=== PATIENT | male | born 1955 | race Caucasian/White ===

== ENCOUNTER → 2016-07-04 | Outpatient (CLI) | payer BC, MEDICARE | LOC: SP 12:28 | PROVIDERS: ATTEND Orthopaedic Surgery Sports Medicine | DX: M79.662 Pain in left lower leg (principal) | CPT/HCPCS: 93971 ==

== ENCOUNTER 2018-08-13 19:16 | Observation (INO) | payer MEDICAID, MEDICARE ==
[2018-08-13] MEDS ORDERED: OXYCODONE-ACETAMINOPHEN 5-325 MG TABLET PO ONE (19:54)
[2018-08-13] MEDS ORDERED: ONDANSETRON 4 MG TAB.RAPDIS PO ONE (19:54)
--- NOTE | 2018-08-13 19:56 | ER Document Report ---
ED Medical Screen (RME) - General Chief Complaint: Fall Injury Stated Complaint: RIGHT SHOULDER PAIN Time Seen by Provider: 08/13/18 19:53 Notes: 62-year-old male patient Parkinson's disease fell getting out of a car this evening. He landed on his right shoulder. Is having pain with deformity and unable to move the arm. Exam shows good sensation, good radial pulse, anterior defect suggesting dislocation of the shoulder. I have greeted and performed a rapid initial assessment of this patient. A comprehensive ED assessment and evaluation of the patient, analysis of test results and completion of the medical decision making process will be conducted by additional ED providers. TRAVEL OUTSIDE OF THE [place] IN LAST 30 DAYS: No - Related Data Allergies/Adverse Reactions: No Known Allergies Allergy (Unverified 05/05/15 09:40) Past Medical History - Social History Frequency of alcohol use: None Drug Abuse: None Renal/ Medical History: Denies: Hx Peritoneal Dialysis Psychiatric Medical History: Reports: Hx Depression - Immunizations Hx Diphtheria, Pertussis, Tetanus Vaccination: Yes Physical Exam - Vital signs Vitals: Temp Pulse Resp BP Pulse Ox 98.2 F 58 L 24 H 179/65 H 96 08/13/18 19:28 08/13/18 19:28 08/13/18 19:28 08/13/18 19:28 08/13/18 19:28 Course - Vital Signs Vital signs: Temp Pulse Resp BP Pulse Ox 98.2 F 58 L 24 H 179/65 H 96 08/13/18 19:28 08/13/18 19:28 08/13/18 19:28 08/13/18 19:28 08/13/18 19:28
[2018-08-13] MEDS ORDERED: FENTANYL CITRATE INJ/PF 100 MCG/2 ML AMPUL IV ONE (20:31)
--- NOTE | 2018-08-13 20:40 | RADIOLOGY REPORT (SQ) ---
EXAM DESCRIPTION: XR SHOULDER 2 OR MORE VIEWS COMPLETED DATE/TME: 08/13/2018 19:55 CLINICAL HISTORY: 62 years Male Probable dislocation after a fall COMPARISON: None. TECHNIQUE: RIGHT shoulder two view FINDINGS: There is anterior dislocation of the shoulder. No definite acute fracture. Postsurgical changes in the humeral head. Stimulator over the right chest. Acromioclavicular joint appears maintained. IMPRESSION: Anterior shoulder dislocation
[2018-08-13] MEDS ORDERED: ONDANSETRON HCL INJ/PF 4 MG/2 ML SDV IV ONE (20:55)
[2018-08-13] MEDS ORDERED: PROPOFOL INJ 200 MG/20 ML VIAL IV ONE ×2 (20:55→22:06)
[2018-08-13 21:33] LABS: ABSOLUTE EOSINOPHILS # (AUTO) 0.1 10^3/uL (0.0-0.6); ABSOLUTE MONOCYTES (AUTO) 0.9 10^3/uL (0.1-1.4); ABSOLUTE NEUT (AUTO) 8.5 10^3/uL (1.7-8.2); BASOPHILS % (AUTO) 0.5 % (0-2); HEMATOCRIT 44.3 % (37.9-51.0); HEMOGLOBIN 15.4 g/dL (13.5-17.0); LYMPHOCYTES % (AUTO) 9.8 % (13-45); MEAN CORPUSCULAR HEMOGLOBIN 31.6 pg (27.0-33.4); MEAN CORPUSCULAR HGB CONC 34.7 g/dL (32.0-36.0); MEAN CORPUSCULAR VOLUME 91 fl (80-97); MONOCYTES % (AUTO) 8.2 % (3-13); PLATELET COUNT 178 10^3/uL (150-450); RED BLOOD COUNT 4.87 10^6/uL (4.35-5.55); RED CELL DISTRIBUTION WIDTH 14.6 % (11.5-14.0); SEGMENTED NEUTROPHILS % (AUTO) 80.5 % (42-78); TOTAL CELLS COUNTED % (AUTO) 100 %; WHITE BLOOD COUNT 10.6 10^3/uL (4.0-10.5)
[2018-08-13 21:39] LABS: INTERNATIONAL RATION (INR) 1.49; PROTHROMBIN TIME 18.8 SEC (11.4-15.4)
[2018-08-13] MEDS ORDERED: MORPHINE SULFATE 10 MG/ML INJ IV ONE (21:39)
--- NOTE | 2018-08-13 21:44 | ER Document Report ---
Entered by MIMA JEFFERSON SCRIBE 08/13/[id number] Acting as scribe for:LANA VILLALBA DO ED Fall - General Chief Complaint: Fall Injury Stated Complaint: RIGHT SHOULDER PAIN Time Seen by Provider: 08/13/18 19:53 Mode of Arrival: Ambulatory Information source: Patient Notes: Patient is a 62-year-old male with a brain stimulator (Parkinson's disease), CABG, presenting to the emergency department complaining of right shoulder pain secondary to mechanical trip and fall prior to arrival to the emergency department. Patient states he slipped and fell backwards into his truck hitting his right shoulder. He also complains of right shoulder pain. He denies any head trauma, neck pain, abdominal pain or loss of consciousness. Patient is currently on Coumadin. TRAVEL OUTSIDE OF THE [place] IN LAST 30 DAYS: No - Related data Allergies/Adverse Reactions: No Known Allergies Allergy (Unverified 05/05/15 09:40) Past Medical History - General Information source: Patient - Social History Smoking Status: Never Smoker Frequency of alcohol use: None Drug Abuse: None Family History: Reviewed & Not Pertinent Patient has suicidal ideation: No Patient has homicidal ideation: No Psychiatric Medical History: Reports: Hx Depression - Immunizations Hx Diphtheria, Pertussis, Tetanus Vaccination: Yes Review of Systems - Review of Systems Constitutional: No symptoms reported EENT: No symptoms reported Cardiovascular: No symptoms reported Respiratory: No symptoms reported Gastrointestinal: No symptoms reported Genitourinary: No symptoms reported Male Genitourinary: No symptoms reported Musculoskeletal: See HPI Skin: No symptoms reported Hematologic/Lymphatic: No symptoms reported Neurological/Psychological: No symptoms reported -: Yes All other systems reviewed and negative Physical Exam - Vital signs Vitals: Temp Pulse Resp BP Pulse Ox 98.2 F 58 L 24 H 179/65 H 96 08/13/18 19:28 08/13/18 19:28 08/13/18 19:28 08/13/18 19:28 08/13/18 19:28 - Notes Notes: GENERAL: Alert, appears uncomfortable. HEAD: Normocephalic, atraumatic. EYES: Pupils equal, round, and reactive to light. Extraocular movements intact. ENT: Oral mucosa moist, tongue midline. NECK: Full range of motion. Supple. Trachea midline. LUNGS: Clear to auscultation bilaterally, no wheezes, rales, or rhonchi. No respiratory distress. HEART: Regular rate and rhythm. No murmurs, gallops, or rubs. ABDOMEN: Soft, non-tender. Non-distended. Bowel sounds present in all 4 quadrants. No guarding, rigidity, or rebound. EXTREMITIES: Restricted movement of the RUE due to pain, obvious deformity of the right shoulder, pulses intact. FROM of LUE, RLE, LLE. Sensations intact. NEUROLOGICAL: Alert and oriented x3. Normal speech. PSYCH: Normal affect, normal mood. SKIN: Warm, dry, normal turgor. No rashes or lesions noted. Course - Re-evaluation Re-evalutation: 08/13/18 21:39 Patient is a 62-year-old male who comes in after a mechanical fall with a right shoulder dislocation. Patient has a history of CABG, is on Coumadin, and has a history of Parkinson's with a brain stimulator. Anesthesia was consulted, Dr. Holman who came to see the patient and agrees that the OR would be the safest place for this particular patient. Dr. Valencia has been consulted who will take the patient to the OR for probable closed reduction. Patient and family are agreeable to this plan. Pain is been controlled with fentanyl and morphine in the emergency department. Last oral intake was around 530. - Vital Signs Vital signs: Temp Pulse Resp BP Pulse Ox 98.3 F 69 23 H 179/65 H 96 08/13/18 21:33 08/13/18 21:33 08/13/18 21:33 08/13/18 19:28 08/13/18 21:33 - Laboratory Result Diagrams: 08/13/18 21:23 08/13/18 21:23 Laboratory results interpreted by me: 08/13/18 21:23 WBC 10.6 H RDW 14.6 H Seg Neutrophils % 80.5 H Lymphocytes % 9.8 L Absolute Neutrophils 8.5 H - Diagnostic Test Radiology reviewed: Image reviewed, Reports reviewed - EKG Interpretation by Id EKG shows normal: Sinus rhythm Rate: Normal Rhythm: PVC's Discharge - Discharge Clinical Impression: Dislocation, shoulder closed Qualifiers: Encounter type: initial encounter Laterality: right Qualified Code(s): S43.004A - Unspecified dislocation of right shoulder joint, initial encounter Condition: Stable Disposition: OTHER Admitting Provider: Erik Unit Admitted: OR [facility] Attestation: 08/13/18 21:41 I personally performed the services described in the documentation, reviewed and edited the documentation which was dictated to the scribe in my presence, and it accurately records my words and actions. I personally performed the services described in the documentation, reviewed and edited the documentation which was dictated to the scribe in my presence, and it accurately records my words and actions.
[2018-08-13 21:54] LABS: ALANINE AMINOTRANSFERASE 21 U/L (21-72); ALBUMIN 4.1 g/dL (3.5-5.0); ALKALINE PHOSPHATASE 81 U/L (38-126); ANION GAP 7 (5-19); ASPARTATE AMINO TRANSFERASE 25 U/L (17-59); BILIRUBIN,DIRECT 0.3 mg/dL (0.0-0.4); BILIRUBIN,TOTAL 0.6 mg/dL (0.2-1.3); BLOOD UREA NITROGEN 23 mg/dL (7-20); CALCIUM 9.3 mg/dL (8.4-10.2); CARBON DIOXIDE 29 mmol/L (22-30); CHLORIDE 103 mmol/L (98-107); GLUCOSE 119 mg/dL (75-110); POTASSIUM 4.3 mmol/L (3.6-5.0); SODIUM 139.4 mmol/L (137-145)
[2018-08-13] MEDS ORDERED: KETAMINE HCL INJ 500 MG/10 ML VIAL ONE (22:06)
[2018-08-13] MEDS ORDERED: MIDAZOLAM 2 MG/2 ML INJ ONE (22:06)
--- NOTE | 2018-08-13 22:16 | PDOC H&P ---
History of Present Illness Admission Date/PCP: 08/13/18 21:58 History of Present Illness: MARCEL ESCUDERO is a 62 year old male 62-year-old white male presents with right shoulder pain. Evaluation emergency room is consistent with an anterior right shoulder dislocation. Orthopedics is consulted for reduction of the dislocated shoulder because of the patient's significant comorbidities and the impediment that this would mount for conscious sedation in the ER. Past Medical History Cardiac Medical History: Reports: Coronary Artery Disease Neurological Medical History: Reports: Other - Parkinson's, brain stimulator Malignancy Medical History: Reports: None Psychiatric Medical History: Reports: Depression Past Surgical History Past Surgical History: Reports: Orthopedic Surgery - History of prior right shoulder dislocation in the while playing foot Social History Information Source: Patient, Relative, [facility] Records Lives with: Spouse/Significant other Smoking Status: Never Smoker Family History Family History: Reviewed & Not Pertinent Parental Family History Reviewed: No Children Family History Reviewed: No Sibling(s) Family History Reviewed.: No Medication/Allergy Home Medications: Oxycodone HCl/Acetaminophen [Percocet 5-325 mg Tablet] 1 - 2 tab PO Q4H PRN #60 tablet 05/05/15 Guaifenesin [Mucinex] 600 mg PO BID #60 tablet.sa 05/06/15 Allergies/Adverse Reactions: No Known Allergies Allergy (Unverified 05/05/15 09:40) Review of Systems All systems: as per PMH Physical Exam Vital Signs: Temp Pulse Resp BP Pulse Ox 36.8 C 69 23 H 179/65 H 96 08/13/18 21:33 08/13/18 21:33 08/13/18 22:00 08/13/18 19:28 08/13/18 22:00 Intake & Output 08/12/18 08/13/18 08/14/18 06:59 06:59 06:59 Weight 131.8 kg Physical Exam: The patient is a burly middle-aged white male lying on an emergency room gurney. He is alert, oriented, and appropriate. General appearance: PRESENT: mild distress, obese, well-nourished Head exam: PRESENT: normocephalic Respiratory exam: PRESENT: tachypnea, unlabored Cardiovascular exam: PRESENT: RRR Pulses: PRESENT: normal radial pulses Vascular exam: PRESENT: normal capillary refill GI/Abdominal exam: PRESENT: soft Rectal exam: PRESENT: deferred Extremities exam: PRESENT: other - Right shoulder with clear topical anatomy deformity. Distal neurovascular examination is intact Neurological exam: PRESENT: alert, awake, oriented to person, oriented to place, oriented to time, oriented to situation Skin exam: PRESENT: dry, intact, warm. ABSENT: cyanosis, rash Results Laboratory Results: 08/13/18 21:23 08/13/18 21:23 08/13/18 08/13/18 21:23 21:23 WBC 10.6 H RBC 4.87 Hgb 15.4 Hct 44.3 MCV 91 MCH 31.6 MCHC 34.7 RDW 14.6 H Plt Count 178 Seg Neutrophils % 80.5 H Lymphocytes % 9.8 L Monocytes % 8.2 Eosinophils % 1.0 Basophils % 0.5 Absolute Neutrophils 8.5 H Absolute Lymphocytes 1.0 Absolute Monocytes 0.9 Absolute Eosinophils 0.1 Absolute Basophils 0.0 Sodium 139.4 Potassium 4.3 Chloride 103 Carbon Dioxide 29 Anion Gap 7 BUN 23 H Creatinine 1.26 H Est GFR ( Amer) > 60 Est GFR (Non-Af Amer) 58 L Glucose 119 H Calcium 9.3 Total Bilirubin 0.6 AST 25 ALT 21 Alkaline Phosphatase 81 Total Protein 7.0 Albumin 4.1 Impressions: Shoulder X-Ray 08/13/18 19:55 IMPRESSION: Anterior shoulder dislocation Status: Imported from PACS Assessment & Plan - Diagnosis (1) Dislocation, shoulder closed Qualifiers: Encounter type: initial encounter Laterality: right Qualified Code(s): S43.004A - Unspecified dislocation of right shoulder joint, initial encounter Is this a current diagnosis for this admission?: Yes Plan: Plan for reduction discussed with Dr. Han skin Dr. Holman. Formula plan to transfer the patient to the operating room for short intubation to allow reduction of the shoulder. - Time Time Spent: 50 to 70 Minutes Anticipated discharge: Home Within: within 24 hours
--- NOTE | 2018-08-13 22:31 | Operative Report ---
Operative Report DATE OF SURGERY: 08/13/18 PREOPERATIVE DIAGNOSIS: Right glenohumeral dislocation, anterior OPERATION: Closed reduction right glenohumeral dislocation SURGEON: JUVE LAL ANESTHESIA: GA ESTIMATED BLOOD LOSS: 0 PROCEDURE: With the patient under sedation/general anesthesia on the operating table the right upper extremity is manipulated under fluoroscopic guidance to affect an a natomic reduction of the glenohumeral joint. The reduction is appreciated clinically and confirmed fluoroscopically. Shoulder immobilizer was placed. The patient's return to the PACU in satisfactory condition.
--- NOTE | 2018-08-13 22:35 | Discharge Summary ---
Discharge Summary (SDC) - Discharge Final Diagnosis: Right shoulder dislocation Date of Surgery: 08/13/18 Discharge Date: 08/13/18 Condition: Good Treatment or Instructions: Use shoulder immobilizer at all times Prescriptions: Oxycodone HCl/Acetaminophen [Percocet 5-325 mg Tablet] 1 - 2 tab PO Q4H PRN #60 tablet PRN Reason: Discharge Diet: As Tolerated, Regular Respiratory Treatments at Home: Deep Breathing/Coughing Discharge Activity: Balance Activity w/Rest Home Care Assistance: None Needed Report the Following to Your Physician Immediately: Shortness of Breath, Fever over 101 Degrees
[2018-08-13] MEDS ORDERED: MEPERIDINE HCL/PF INJ 25 MG/1 ML DISP.SYRIN IV PRN (22:44)
[2018-08-13] MEDS ORDERED: OXYCODONE-ACETAMINOPHEN 5-325 MG TABLET PO PRN ×2 (22:44)
[2018-08-13] MEDS ORDERED: PROMETHAZINE HCL INJ 25 MG/1 ML VIAL IV PRN (22:44)
[2018-08-13] MEDS ORDERED: ONDANSETRON HCL INJ/PF 4 MG/2 ML SDV IV PRN (22:44)
[2018-08-13] MEDS ORDERED: FENTANYL CITRATE INJ/PF 100 MCG/2 ML AMPUL IV PRN ×3 (22:44)
[2018-08-13] MEDS ORDERED: DIPHENHYDRAMINE HCL 50 MG/ML VIAL IV PRN (22:44)
[2018-08-13] MEDS ORDERED: FENTANYL CITRATE INJ/PF 100 MCG/2 ML AMPUL ONE (22:47)
[2018-08-13] MEDS ORDERED: OXYCODONE-ACETAMINOPHEN 5-325 MG TABLET ONE (22:47)
--- NOTE | 2018-08-13 22:49 | RADIOLOGY REPORT (SQ) ---
EXAM DESCRIPTION: XR SHOULDER 1 VIEW COMPLETED DATE/TME: 08/13/2018 00:00 CLINICAL HISTORY: 62 years, Male, CLOSED REDUCTION IN OR Fluoroscopy time 0.3 minutes. Single image. FINDINGS: There is anatomic alignment of the right humeral head as compared to prior views. IMPRESSION: Postreduction views show anatomic alignment.
--- NOTE | 2018-08-13 23:29 | EKG REPORT ---
SEVERITY:- ABNORMAL ECG - SINUS RHYTHM VENTRICULAR BIGEMINY PROBABLE LEFT ATRIAL ABNORMALITY NONSPECIFIC INTRAVENTRICULAR CONDUCTION DELAY PROBABLE INFERIOR INFARCT, AGE INDETERMINATE : Confirmed by: Talib Garcia 13-Aug-2018 23:28:35
[2018-08-14 01:39] VITALS: BP 166/95
--- NOTE | 2018-08-14 11:05 | RADIOLOGY REPORT (SQ) ---
EXAM DESCRIPTION: NO CHG FLUORO COMPLETE DATE/TIME: 08/13/2018 10:42 pm REASON FOR STUDY: CLOSED REDUCTION IN OR FINDINGS: Please see combined report for performance of procedure and radiologic supervision and int erpretation. IMPRESSION: Please see combined report for performance of procedure and radiologic supervision and i nterpretation. Reading location - IP/workstation name: [email or web address]
== END 2018-08-14 00:34 | disposition home or self-care (01) ==
LOC: ER 19:16 → EH 21:58
PROVIDERS: ADMIT Orthopaedic Surgery; ATTEND Orthopaedic Surgery
PROC: 0RSJXZZ Reposition Right Shoulder Joint, External Approach (ICD-10-PCS; principal; 2018-08-13 22:30)
DX: S43.014A Anterior dislocation of right humerus, initial encounter (principal); W01.198A Fall on same level from slipping, tripping and stumbling with subsequent striking against other object, initial encounter; G20 Parkinson's disease; I49.3 Ventricular premature depolarization; Z96.89 Presence of other specified functional implants; I25.10 Atherosclerotic heart disease of native coronary artery without angina pectoris; E66.9 Obesity, unspecified; R06.82 Tachypnea, not elsewhere classified; Z79.01 Long term (current) use of anticoagulants; Z87.39 Personal history of other diseases of the musculoskeletal system and connective tissue; Z95.1 Presence of aortocoronary bypass graft
CPT/HCPCS: 93005; 99285; 96374; 96375; 36415; 85025; 85610; 85730; 80053; 73020; 73030; 93010; 23655; L3650; J2250; A9270 ×2; J3010; J3490; J2270; J2405; J2704; 01620; S0119

== ENCOUNTER 2020-04-26 08:04 | Day surgery (SDC) | payer MEDICARE ==
[~2020-04-26 08:04] MED LIST: BUPIVACAINE HCL 0.75% INJ/PF (7.5 MG/1 ML) 10 ML SDV OD PRN; CHONDR SU A NA/HYALUR INTRAOC KIT (SURGICARE) ONE; EPINEPHRINE INJ/PF 1 MG/1 ML AMPULE ONE; FENTANYL CITRATE INJ/PF 100 MCG/2 ML AMPUL ONE; KETOROLAC TROMETHAMINE 0.45% 4 DROP/0.4 ML DROPERETTE OD PRN; LIDOCAINE 1% INJ-PF (10 MG/ML) 30 ML SDV ONE; LIDOCAINE 4% INJ/PF (40 MG/ML) 5 ML AMPUL OD PRN; MIDAZOLAM 2 MG/2 ML INJ ONE
[2020-04-26] MEDS: TROPICAMIDE 1% OPH SOLN 15 ML OD PRN ×3 (08:17→08:37)
[2020-04-26] MEDS: CYCLOPENTOLATE 0.2%/PHENYLEPHRINE 1% OPH SOLN 2 ML OD PRN ×3 (08:17→08:37)
[2020-04-26] MEDS: BESIFLOXACIN HCL 0.6% OPH SUSP 5 ML BOTTLE OD PRN ×4 (08:17→09:15)
[2020-04-26] MEDS: TETRACAINE HCL 0.5% OPH SOLN 4 ML OD PRN ×3 (08:18→08:45)
[2020-04-26] MEDS: DORZOLAMIDE HCL 2%/TIMOLOL MALEAT 0.5% OPH SOLN 10 ML OD PRN ×2 (09:15)
[2020-04-26] MEDS: PREDNISOLONE ACETATE 1% OPH SUSP 5 ML OD PRN ×2 (09:15)
--- NOTE | 2020-04-26 12:23 | Operative Report ---
Operative Report-[facility] Operative Report: DATE OF SURGERY: 04/26/2020 PREOPERATIVE DIAGNOSIS: CATARACT, RIGHT EYE. POSTOPERATIVE DIAGNOSIS: CATARACT, RIGHT EYE. PROCEDURE PERFORMED: PHACOEMULSIFICATION WITH POSTERIOR CHAMBER INTRAOCULAR LENS, RIGHT EYE. Intraocular Lens Model : DC denney 18.5 Total Phaco Time: 5.5 CDE SURGEON: GERMÁN VERA MD ANESTHESIA: TOPICAL WITH MAC. INDICATIONS FOR SURGERY: Difficulty reading words on TV. PROCEDURE: The patient was brought to the Operating Room and placed on the operative table. Following tetracaine drops, topical anesthesia was administered. This consisted of instrument wipe pledgets soaked in a solution of 4% Xylocaine mixed with 0.75% Marcaine in a 1:2 ratio. A 2 x 1 cm pledget was placed in the superior fornix. A 1 x 1 cm pledget was placed in the inferior fornix. The eye was patched shut for 5 minutes. The patch was removed. The eye was sterilely prepped and draped in the usual manner. Lid speculum was placed in the eye. The pledgets were removed. 4-0 black silk sutures were placed around the superior and the inferior rectus muscles to be used as traction. A conjunctival peritomy was made at the 10 o'clock position. Hemostasis was obtained with bipolar cautery. A posterior limbal groove was created using a crescent knife and dissected anteriorly towards the cornea. A sharp point blade was used to create a paracentesis site at the 2 o'clock position. 0.2 cc non preserved Lidocaine was injected into the anterior chamber. A 2.4 mm keratome was used to enter the anterior chamber through the groove. Viscoelastic was injected into the anterior chamber. An anterior capsulotomy was performed using Utrata forceps in a capsulorrhexis fashion. Hydrodissection and hydrodelineation were performed. Phacoemulsification was performed in [id number] technique. Following this, the I/A unit was used to remove residual cortex. Viscoelastic was injected into the capsular bag. The Intraocular lens was placed in the capsular bag. The I/A unit was used to remove residual viscoelastic. The wound was seen to be watertight under high and low pressure, and no sutures were placed. The intraocular lens was well centered. The pressure was adjusted in the eye to normal pressure. The 4-0 black silk sutures and lid speculum were removed. The eye was shielded after Besivance. prednisolone, and Cosopt drops were placed. The patient tolerated the procedure well and was sent to the Recovery Room in good condition.
== END 2020-04-26 09:52 | disposition home or self-care (01) ==
LOC: SC 08:04
PROVIDERS: ATTEND Ophthalmology
DX: H25.811 Combined forms of age-related cataract, right eye (principal); H59.812 Chorioretinal scars after surgery for detachment, left eye; H04.123 Dry eye syndrome of bilateral lacrimal glands; H43.813 Vitreous degeneration, bilateral; H52.4 Presbyopia; I10 Essential (primary) hypertension; E78.00 Pure hypercholesterolemia, unspecified; G20 Parkinson's disease; Z86.711 Personal history of pulmonary embolism; Z79.01 Long term (current) use of anticoagulants; G47.33 Obstructive sleep apnea (adult) (pediatric); Z95.1 Presence of aortocoronary bypass graft; I25.10 Atherosclerotic heart disease of native coronary artery without angina pectoris
CPT/HCPCS: 66984; V2632; J2250; J3490 ×5; A9270; J0171; J3010

== ENCOUNTER 2020-05-24 07:50 | Day surgery (SDC) | payer MEDICARE ==
[~2020-05-24 07:50] MED LIST changes: -BUPIVACAINE HCL 0.75% INJ/PF (7.5 MG/1 ML) 10 ML SDV OD PRN; +BUPIVACAINE HCL 0.75% INJ/PF (7.5 MG/1 ML) 10 ML SDV OS PRN; -KETOROLAC TROMETHAMINE 0.45% 4 DROP/0.4 ML DROPERETTE OD PRN; +KETOROLAC TROMETHAMINE 0.45% 4 DROP/0.4 ML DROPERETTE OS PRN; -LIDOCAINE 1% INJ-PF (10 MG/ML) 30 ML SDV ONE; +LIDOCAINE 1%/PHENYLEPHRINE 1.5% 1 ML VIAL ONE; -LIDOCAINE 4% INJ/PF (40 MG/ML) 5 ML AMPUL OD PRN; +LIDOCAINE 4% INJ/PF (40 MG/ML) 5 ML AMPUL OS PRN; +ONDANSETRON HCL INJ/PF 4 MG/2 ML SDV ONE
[2020-05-24] MEDS: TETRACAINE HCL 0.5% OPH SOLN 4 ML OS PRN ×3 (08:15→08:45)
[2020-05-24] MEDS: BESIFLOXACIN HCL 0.6% OPH SUSP 5 ML BOTTLE OS PRN ×4 (08:15→09:14)
[2020-05-24] MEDS: TROPICAMIDE 1% OPH SOLN 15 ML OS PRN ×3 (08:15→08:35)
[2020-05-24] MEDS: CYCLOPENTOLATE 0.2%/PHENYLEPHRINE 1% OPH SOLN 2 ML OS PRN ×3 (08:15→08:35)
[2020-05-24] MEDS: PREDNISOLONE ACETATE 1% OPH SUSP 5 ML OS PRN ×2 (09:14)
[2020-05-24] MEDS: DORZOLAMIDE HCL 2%/TIMOLOL MALEAT 0.5% OPH SOLN 10 ML OS PRN ×2 (09:14)
--- NOTE | 2020-05-24 11:46 | Operative Report ---
Operative Report-[facility] Operative Report: DATE OF SURGERY: 05/24/2020 PREOPERATIVE DIAGNOSIS: CATARACT, LEFT EYE. POSTOPERATIVE DIAGNOSIS: CATARACT, LEFT EYE. PROCEDURE PERFORMED: PHACOEMULSIFICATION WITH POSTERIOR CHAMBER INTRAOCULAR LENS, LEFT EYE. Intraocular Lens Model : DC denney 15.5 Total Phaco Time: 6.24 CDE SURGEON: GERMÁN VERA MD ANESTHESIA: TOPICAL WITH MAC. INDICATIONS FOR SURGERY: Difficultly driving at night PROCEDURE: The patient was brought to the Operating Room and placed on the operative table. Following tetracaine drops, topical anesthesia was administered. This consisted of instrument wipe pledgets soaked in a solution of 4% Xylocaine mixed with 0.75% Marcaine in a 1:2 ratio. A 2 x 1 cm pledget was placed in the superior fornix. A 1 x 1 cm pledget was placed in the inferior fornix. The eye was patched shut for 5 minutes. The patch was removed. The eye was sterilely prepped and draped in the usual manner. Lid speculum was placed in the eye. The pledgets were removed. 4-0 black silk sutures were placed around the superior and the inferior rectus muscles to be used as traction. A conjunctival peritomy was made at the 10 o'clock position. Hemostasis was obtained with bipolar cautery. A posterior limbal groove was created using a crescent knife and dissected anteriorly towards the cornea. A sharp point blade was used to create a paracentesis site at the 2 o'clock position. 0.2 cc non preserved Lidocaine was injected into the anterior chamber. A 2.4 mm keratome was used to enter the anterior chamber through the groove. Viscoelastic was injected into the anterior chamber. An anterior capsulotomy was performed using Utrata forceps in a capsulorrhexis fashion. Hydrodissection and hydrodelineation were performed. Phacoemulsification was performed in [id number] technique. Following this, the I/A unit was used to remove residual cortex. Viscoelastic was injected into the capsular bag. The Intraocular lens was placed in the capsular bag. The I/A unit was used to remove residual viscoelastic. The wound was seen to be watertight under high and low pressure, and no sutures were placed. The intraocular lens was well centered. The pressure was adjusted in the eye to normal pressure. The 4-0 black silk sutures and lid speculum were removed. The eye was shielded after Besivance,prednisolone, and Cosopt drops were placed. The patient tolerated the procedure well and was sent to the Recovery Room in good condition.
== END 2020-05-24 09:50 | disposition home or self-care (01) ==
LOC: SC 07:50
PROVIDERS: ATTEND Ophthalmology
DX: H25.812 Combined forms of age-related cataract, left eye (principal); Z96.1 Presence of intraocular lens; H35.89 Other specified retinal disorders; I10 Essential (primary) hypertension; E78.00 Pure hypercholesterolemia, unspecified; G20 Parkinson's disease; Z86.711 Personal history of pulmonary embolism; Z79.01 Long term (current) use of anticoagulants; I25.2 Old myocardial infarction; E66.9 Obesity, unspecified
CPT/HCPCS: 66984; V2632; J2250; J3490 ×4; A9270; J0171; J3010; J2405